=== PATIENT | female | born 1995 | race Caucasian/White ===

== ENCOUNTER 2019-08-23 22:18 | Emergency (ER) | payer OTHER, SELFPAY ==
[2019-08-23 22:18] VITALS: BP 141/94; PULSE 71; RESP 18; TEMP 36.6; O2SAT 100; BMI 23.6
--- NOTE | 2019-08-23 22:46 | ED.VIS.HA ---
History of Present Illness Chief Complaint: Headache Informant: Patient, Family Onset: Days - 3 Context: Gradual Timing: Continuous Quality: Throbbing Location: right frontal and retroorbital Current Severity: Moderate Maximum Severity: Severe Worsened by: occasionally light Relieved by: nothing including one dose each of Tylenol and Ibuprofen Associated Symptoms: Photophobia - mild, intermittent. Negative for: Fever, Nausea, Vomiting, Sore Throat, Sinus Pressure, Numbness, Tingling, Preceding Aura, Visual Changes, Blurred Vision, Visual Loss Narrative: Patient recently finished college finishing the rest of her course work-up online, back here visiting family from [place], she had what felt like a normal headache which she relatively infrequently gets, 3 days ago. It has progressed without going way to the point of throbbing and being retro-orbital which usually is not, and has not gone away. There has been no nausea or vomiting, neck stiffness, fevers, sinus congestion although she does have seasonal allergies which are treated. She denies any neurologic symptoms. No vision changes or loss, no loss of consciousness, no thunderclap the headache started gradually. Prior similar symptoms: No Recent Illness/Hospitalization: No Past Medical History - Allergies and Home Meds Allergies/Adverse Reactions: Allergies No Known Allergies Allergy (Verified 08/23/19 22:20) Primary Care Physician: Cathie Rubin,Out of [Primary Care Provider] - Past Medical History: None Surgical History: no surgical history Lives: With Family Review of Systems General: Denies: Chills, Fever, Sweats Eyes: Denies: Visual changes - bilaterally, Diplopia ENT: Denies: Bilateral ear pain, Rhinorrhea, Sore throat Cardiovascular: Denies: Chest pain, Palpitations Respiratory: Denies: Dyspnea, Cough, Dyspnea on exertion Gastrointestinal: Denies: Abdominal pain, Nausea, Vomiting, Diarrhea, Melena, Hematochezia Genitourinary: Denies: Dysuria, Hematuria, Frequency Musculoskeletal: Denies: Neck pain, Back pain, Swelling, Extremity Pain Skin: Denies: Rash, Wounds Neurological: Reports: Headache. Denies: Weakness, Numbness Physical Exam Vital Signs/Narrative: Vital Signs Temp Pulse Resp BP Pulse Ox 08/23/19 22:18 97.8 F 71 18 141/94 H 100 Inital Vital Signs reviewed: Yes General: Well nourished, Well developed, - - Well-appearing, no distress Head: NC, AT Eyes: Perrl, EOMI ENT: Moist mucous membranes, No rhinorrhea, TM's clear. Negative for: Sinus tenderness - No purulent nasal drainage Neck: Supple, No Lymphadenopathy, Nontender, No Meningismus Respiratory: No distress Extremities: Nontender, No edema Skin: Normal color, No rash, No Trauma Neuro: Alert, Oriented x3, Cranial nerves II-XII grossly intact, Normal Strength, Normal Sensation, Normal DTR, Normal Gait Psychological: Normal affect, Normal Mood Diagnostic/Tx/Re-eval - Medical Decision Making Given the history of the onset of a headache and lack of neurologic symptoms or abnormal findings on exam, I do not feel the patient needs CT or other emergent imaging/testing at this time. I explained all that and they agree. I thought focusing on treatment would be the most appropriate for this patient at this time. She was treated as if this was a migraine, simply she received fluids, Toradol, Reglan. On reevaluation she feels much better and states that her headache is resolved. Discussed following up with her doctor for recurrence, and gave a prescription for Reglan in case she has rebound/recurrent, and discussed reasons to return they are comfortable with this plan. ED Disposition - Plan for ED Patient: Disposition: Home or Assisted Living Diagnosis: Migraine headache without aura Instructions: ED, Migraine (Classical) Prescriptions: Metoclopramide [Reglan] 10 mg PO Q6H PRN #20 tab PRN Reason: nausea or migraine Prescription Printed Referrals: [facility] Doctor,Out of [Primary Care Provider] - As Needed
[2019-08-23] MEDS: 0.9% Normal Saline 1,000 ML 999 ML IV (22:50)
[2019-08-23] MEDS: Metoclopramide 10 MG/2 ML Vial IV (22:51)
[2019-08-23] MEDS: Ketorolac 30 MG/ML Syringe IV (22:52)
[2019-08-24 00:07] VITALS: RESP 16
== END 2019-08-24 00:11 | disposition home or self-care (01) ==
LOC: ED 08-24 00:10
PROVIDERS: Emergency Provider Emergency Medicine
DX: G43.009 Migraine without aura, not intractable, without status migrainosus (principal)
CPT/HCPCS: 96361; 96374; 96375; 99283; J7030; A4216

== ENCOUNTER → 2023-09-24 | Outpatient (CLI) | payer BC, SELFPAY ==
[2023-09-24 11:56] LABS: Absolute Lymphocyte Count 2.15 X10^3/uL (0.83-4.51); Absolute Neutrophil Count 5.4 X10^3/uL (2.0-7.7); Basophil# 0.05 X10^3/uL; Basophil% 0.6 % (0-1); Eosinophil# 0.11 X10^3/uL; Eosinophils% 1.4 % (0-5); Hematocrit 42.1 % (37-47); Hemoglobin 13.9 g/dL (12.0-15.0); Lymphocyte # 2.15 X10^3/ul (0.83-4.51); Lymphocyte % 26.5 % (19-41); Mean Corpuscular Hgb 28.4 pg (27.0-32.0); Mean Corpuscular Volume 85.9 fL (81-99); Mean Platelet Vol. 9.6 fl (6.2-12.0); Monocyte# 0.44 X10^3/uL; Monocyte% 5.4 % (0-10); NRBC Flagged by Analyzer 0 % (0-5); Neutrophil # 5.35 X10^3/uL (2.7-7.7); Neutrophil % 65.9 % (47-70); Platelet Count 312 K/mm3 (150-450); RBC Distribution Width CV 12.2 % (11.6-14.6); RBC Distribution Width SD 38.1 fl (35.1-43.9); White Blood Count 8.1 K/mm3 (4.4-11.0)
[2023-09-24 12:47] LABS: Ferritin 54 ng/mL (8-252); Free T3 3.2 pg/mL (2.18-3.98); Iron 61 ug/dL (50-170); T4 Free Direct 1.32 ng/dL (0.76-1.46); Thyroid Stim Hormone (TSH) 1.81 uIU/mL (0.358-3.74)
[2023-09-26 12:17] LABS: Vitamin B12 1222 pg/mL (211-911)
[2023-09-26 16:09] LABS: Thyroglobulin Antibody < 1.0 IU/mL (0.0-0.9); Thyroid Peroxidase AB 11 IU/mL (0-34)
== END | disposition home or self-care (01) ==
LOC: LAB 11:27
PROVIDERS: Family Medicine; Referring Provider Family Medicine; Visit Provider Family Medicine
DX: E53.8 Deficiency of other specified B group vitamins (principal); E03.9 Hypothyroidism, unspecified; D50.9 Iron deficiency anemia, unspecified
CPT/HCPCS: 36415; 82607; 82728; 83540; 84439; 84443; 84481; 85025; 86376; 86800